=== PATIENT | male | born 1940 | race Caucasian/White ===

== ENCOUNTER 2016-12-04 12:49 | Inpatient (IN) | payer OTHER ==
[~2016-12-04] VITALS: Ht 182.9 cm; Wt 97.7 kg
[~2016-12-04 12:49] MED LIST: METOPROLOL; PLAVIX; PRILOSEC
[2016-12-04 13:16] LABS: Basophils # (auto) 0 uL; Basophils % (auto) 0.3 % (0.0-2.0); Eosinophils # (auto) 0.4 uL; Eosinophils % (auto) 3.6 % (0.0-7.0); Hemoglobin 15.9 g/dL (13.5-17.5); Lymphocytes # (auto) 3.1 uL; Lymphocytes % (auto) 31.6 % (10.0-50.0); Mean Corpuscular Hgb Conc. 32.4 g/dL (32.0-36.0); Mean Corpuscular Volume 86.5 fL (80.0-100.0); Mean Platelet Volume 9.3 fL (7.4-10.4); Monocytes # (auto) 0.9 uL; Monocytes % (auto) 9.4 % (0.0-12.0); Neutrophils # (auto) 5.5 uL; Neutrophils % (auto) 55.1 % (37.0-80.0); Platelet Count (auto) 293 10^3/uL (140-450); Red Cell Distribution Width 14.1 % (11.6-16.0); White Blood Cell 9.9 10^3/uL (4.4-10.8)
[2016-12-04 13:41] LABS: Albumin 4.2 g/dL (3.4-5.0); Alkaline Phosphatase 65 U/L (45-117); Anion Gap 8 (5-15); Aspartate Aminotransferase 19 U/L (15-37); Bilirubin, Total 0.9 mg/dL (0.2-1.0); Blood Urea Nitrogen 18 mg/dL (7-18); Calcium 8.9 mg/dL (8.5-10.1); Carbon Dioxide 31 mmol/L (21-32); Chloride 106 mmol/L (98-107); GFR African American 130 mL/min; GFR Non-African American 108 mL/min; Glucose 103 mg/dL (74-106); Magnesium 2.3 mg/dL (1.6-2.6); Potassium 4.1 mmol/L (3.5-5.1); Sodium 145 mmol/L (136-145); Total Protein 8.2 g/dL (6.4-8.2)
[2016-12-04 14:41] LABS: INR 1.17 (0.9-1.15); Prothrombin Time 12.6 sec (9.37-12.3)
[2016-12-04] MEDS ORDERED: ENOXAPARIN SOD 40 MG/0.4 ML SYRINGE SC ONE (15:45)
[2016-12-04] MEDS ORDERED: MORPHINE SULF INJ 2 MG/ML SYRINGE 1ML IV PRN (15:45)
[2016-12-04] MEDS ORDERED: PANTOPRAZOLE 40 MG TAB PO ONE (16:00)
[2016-12-04] MEDS ORDERED: ASPirin 81 mg TAB PO ONE (16:00)
[2016-12-04] MEDS: NITROGLYCERIN 0.4 MG SL TAB SL PRN ×2 (19:05→20:25)
[2016-12-04] MEDS: ATORVASTATIN 20 MG TAB PO SCH (20:10)
[2016-12-04 20:45] VITALS: BP_SYST 119; BP_SYST 127; BP_DIAS 75; BP_DIAS 76
[2016-12-04] MEDS: METOPROLOL TARTRATE 25 MG TAB PO SCH (21:53)
[2016-12-05] VITALS (7 sets, daily range): BP systolic 123–130; BP diastolic 47–79
[2016-12-05] MEDS ORDERED: RIVA20TA PO (03:20)
[2016-12-05] MEDS ORDERED: OMEP20CA5 PO (03:20)
[2016-12-05] MEDS ORDERED: ISOS20TA56 PO (03:20)
[2016-12-05] MEDS ORDERED: GABA300C8 PO (03:20)
[2016-12-05] MEDS ORDERED: METO25TA5 PO (03:20)
[2016-12-05] MEDS ORDERED: NITR0.4S29 SL (03:20)
[2016-12-05] MEDS ORDERED: IBUP800T24 PO (03:20)
[2016-12-05] MEDS ORDERED: SIMV-8 PO (03:20)
[2016-12-05 06:13] LABS: Cholesterol 128 mg/dL (0-200); HDL Cholesterol 35 mg/dL (40-59); LDL Cholesterol 75 mg/dL (<100); Triglycerides 137 mg/dL (<150)
[2016-12-05] MEDS ORDERED: LIDOCAINE 2%HCL (LOCAL ANESTH.) INJ 20ML MDV ONE (09:03)
[2016-12-05] MEDS ORDERED: IODIXANOL 320MG/ML 100ML BTL IV ONE (09:03)
[2016-12-05] MEDS: PANTOPRAZOLE 40 MG TAB PO SCH (09:22)
[2016-12-05] MEDS: ATORVASTATIN 20 MG TAB PO SCH (09:23)
[2016-12-05] MEDS: METOPROLOL TARTRATE 25 MG TAB PO SCH ×2 (09:23→21:32)
[2016-12-05] MEDS ORDERED: CLOPIDOGREL BISULFATE 75 MG TAB PO SCH (10:00)
[2016-12-05] MEDS ORDERED: ASPirin 81 mg TAB PO SCH (10:00)
[2016-12-05] MEDS ORDERED: CLOPIDOGREL 300 MG TAB PO ONE (10:00)
[2016-12-05] MEDS ORDERED: MIDAZOLAM HCL 1MG/1ML-2 ML VIAL ONE (11:57)
[2016-12-05] MEDS ORDERED: fentaNYL CITRATE 100 MCG/2 ML VL ONE (11:57)
[2016-12-05] MEDS ORDERED: ANGIOMAX 250 MG VIAL IV ONE (12:04)
[2016-12-05] MEDS ORDERED: SODIUM CHL 0.9% 50 ML ONE (12:05)
[2016-12-05] MEDS ORDERED: ASPirin 81 mg TAB ONE (12:14)
[2016-12-05] MEDS ORDERED: PRASUGREL HCL 10 MG TAB ONE (12:16)
[2016-12-05] MEDS: SODIUM CHLOR 0.9% PF (SALINE LOCK) 10ML VIAL IV SCH (21:31)
[2016-12-06 04:36] VITALS: BP 102/65
[2016-12-06 05:19] LABS: Basophils # (auto) 0 uL; Basophils % (auto) 0.2 % (0.0-2.0); Eosinophils # (auto) 0.2 uL; Eosinophils % (auto) 1.5 % (0.0-7.0); Lymphocytes # (auto) 2.2 uL; Lymphocytes % (auto) 17.1 % (10.0-50.0); Mean Corpuscular Hemoglobin 28.3 pg (28.0-32.0); Mean Corpuscular Hgb Conc. 32.5 g/dL (32.0-36.0); Mean Corpuscular Volume 86.8 fL (80.0-100.0); Mean Platelet Volume 9.4 fL (7.4-10.4); Monocytes # (auto) 1.2 uL; Monocytes % (auto) 9.7 % (0.0-12.0); Neutrophils % (auto) 71.5 % (37.0-80.0); Platelet Count (auto) 253 10^3/uL (140-450); Red Cell Distribution Width 13.8 % (11.6-16.0); White Blood Cell 12.6 10^3/uL (4.4-10.8)
[2016-12-06 05:52] LABS: Albumin 3.6 g/dL (3.4-5.0); BUN/Creatinine Ratio 17.1; Bilirubin, Total 1.1 mg/dL (0.2-1.0); Calcium 8.9 mg/dL (8.5-10.1); Potassium 4.1 mmol/L (3.5-5.1); Total Protein 7.2 g/dL (6.4-8.2)
[2016-12-06] MEDS: SODIUM CHLOR 0.9% PF (SALINE LOCK) 10ML VIAL IV SCH (06:00)
[2016-12-06 07:34] VITALS: BP 137/65
[2016-12-06] MEDS ORDERED: CLOPIDOGREL 300 MG TAB PO ONE ×3 (08:00→17:30)
[2016-12-06] MEDS: ATORVASTATIN 20 MG TAB PO SCH (09:20)
[2016-12-06] MEDS: PANTOPRAZOLE 40 MG TAB PO SCH (09:20)
[2016-12-06] MEDS: METOPROLOL TARTRATE 25 MG TAB PO SCH (09:21)
[2016-12-06] MEDS ORDERED: ASPirin 81 mg TAB PO SCH (10:00)
[2016-12-06] MEDS ORDERED: PRASUGREL HCL 10 MG TAB PO SCH (10:00)
[2016-12-06 11:37] VITALS: BP 107/60
[2016-12-07] MEDS ORDERED: CLOPIDOGREL BISULFATE 75 MG TAB PO SCH (10:00)
== END 2016-12-06 13:38 | disposition left against medical advice (07) | DRG 247 ==
LOC: ER 12:51 → TELE 12:52 → TELE-CENTR 20:45
PROVIDERS: ADMIT Internal Medicine; ATTEND Internal Medicine
PROC: 027135Z Dilation of Coronary Artery, Two Arteries with Two Drug-eluting Intraluminal Devices, Percutaneous Approach (ICD-10-PCS; principal; 2016-12-05)
PROC: 4A023N7 Measurement of Cardiac Sampling and Pressure, Left Heart, Percutaneous Approach (ICD-10-PCS; 2016-12-05)
PROC: B2111ZZ Fluoroscopy of Multiple Coronary Arteries using Low Osmolar Contrast (ICD-10-PCS; 2016-12-05)
DX: I21.4 Non-ST elevation (NSTEMI) myocardial infarction (principal); J96.10 Chronic respiratory failure, unspecified whether with hypoxia or hypercapnia; E78.5 Hyperlipidemia, unspecified; K21.9 Gastro-esophageal reflux disease without esophagitis; I25.110 Atherosclerotic heart disease of native coronary artery with unstable angina pectoris; E11.9 Type 2 diabetes mellitus without complications; I11.9 Hypertensive heart disease without heart failure; J44.9 Chronic obstructive pulmonary disease, unspecified; Z87.891 Personal history of nicotine dependence; Z86.73 Personal history of transient ischemic attack (TIA), and cerebral infarction without residual deficits
CPT/HCPCS: 36415; 71020; 80053; 80061; 83036; 83735; 84443; 84484; 85025; 85610; 93005; 96372; 99152; 99291; C1874; J2250; Q9967

== ENCOUNTER → 2018-11-10 | Outpatient (CLI) | payer OTHER ==
[~2018-11-10] MED LIST changes: +ASPI-231 PO; +CLOP75TA28 PO; +DOCU-94 PO; +GABA300C10 PO; +ISOS20TA56 PO; +METO25TA5 PO; -METOPROLOL; +OMEP20CA74 PO; -PLAVIX; -PRILOSEC; +SIMV-8 PO
[2018-11-10 12:33] LABS: Basophils # (auto) 0.1 uL; Basophils % (auto) 0.7 % (0.0-2.0); Eosinophils # (auto) 0.3 uL; Eosinophils % (auto) 3.9 % (0.0-7.0); Hematocrit 47.2 % (41.0-53.0); Hemoglobin 15.3 g/dL (13.5-17.5); Lymphocytes # (auto) 2.3 uL; Lymphocytes % (auto) 27.5 % (10.0-50.0); Mean Corpuscular Hemoglobin 28.2 pg (28.0-32.0); Mean Corpuscular Hgb Conc. 32.5 g/dL (32.0-36.0); Mean Corpuscular Volume 86.7 fL (80.0-100.0); Monocytes % (auto) 12.4 % (0.0-12.0); Neutrophils # (auto) 4.7 uL; Neutrophils % (auto) 55.5 % (37.0-80.0); Nucleated Red Blood Cells % 0.1 %; Platelet Count (auto) 223 10^3/uL (140-450); Red Blood Cells 5.44 10^6/uL (4.5-5.90); Red Cell Distribution Width 14.3 % (11.8-14.3); White Blood Cell 8.4 10^3/uL (4.4-10.8)
[2018-11-10 12:46] LABS: Albumin 3.6 g/dL (3.4-5.0); BUN/Creatinine Ratio 23.4; Calcium 8.8 mg/dL (8.5-10.1)
[2018-11-10 12:51] LABS: Bilirubin, Total 0.6 mg/dL (0.2-1.0); Total Protein 7.7 g/dL (6.4-8.2)
== END | disposition home or self-care (01) ==
LOC: LAB 11:37
PROVIDERS: ATTEND Internal Medicine
DX: Z12.11 Encounter for screening for malignant neoplasm of colon (principal); E11.9 Type 2 diabetes mellitus without complications; E78.5 Hyperlipidemia, unspecified; J44.9 Chronic obstructive pulmonary disease, unspecified; K21.9 Gastro-esophageal reflux disease without esophagitis; I10 Essential (primary) hypertension
CPT/HCPCS: 36415; 80053; 80061; 82043; 82306; 83036; 84443; 85025

== ENCOUNTER → 2019-02-07 | Outpatient (CLI) | payer OTHER ==
[2019-02-07 08:06] LABS: Basophils # (auto) 0.1 uL; Eosinophils # (auto) 0.4 uL; Eosinophils % (auto) 4.8 % (0.0-7.0); Hematocrit 47.5 % (41.0-53.0); Hemoglobin 15.6 g/dL (13.5-17.5); Lymphocytes # (auto) 2.7 uL; Lymphocytes % (auto) 29.1 % (10.0-50.0); Mean Corpuscular Hemoglobin 28.3 pg (28.0-32.0); Mean Corpuscular Hgb Conc. 32.9 g/dL (32.0-36.0); Mean Corpuscular Volume 86.1 fL (80.0-100.0); Monocytes # (auto) 0.8 uL; Monocytes % (auto) 9.1 % (0.0-12.0); Neutrophils # (auto) 5.1 uL; Platelet Count (auto) 234 10^3/uL (140-450); Red Blood Cells 5.52 10^6/uL (4.5-5.90); White Blood Cell 9.2 10^3/uL (4.4-10.8)
[2019-02-07 08:22] LABS: Urine Bacteria NONE SEEN /hpf (None Seen); Urine Blood 1+ /uL (Negative); Urine Mucus FEW (None Seen); Urine Specific Gravity 1.012 (1.001-1.035); Urine WBC 295 /hpf (0 - 3); Urine WBC Clumps PRESENT /hpf (None Seen)
[2019-02-07 09:59] LABS: Albumin 3.8 g/dL (3.4-5.0); Potassium 4.1 mmol/L (3.5-5.1)
[2019-02-07 10:01] LABS: Bilirubin, Total 0.6 mg/dL (0.2-1.0); CRP High Sensitivity 0.03 mg/dL (< 0.3); Total Protein 7.6 g/dL (6.4-8.2)
[2019-02-07 10:04] LABS: Free T4 (Free Thyroxine) 0.89 ng/dL (0.89-1.76)
[2019-02-07 10:05] LABS: Free T3 3.13 pg/mL (2.3-4.2); T3 Total 1.04 ng/mL (0.60-1.81)
== END | disposition home or self-care (01) ==
LOC: LAB 07:35
PROVIDERS: ATTEND Internal Medicine
DX: E11.42 Type 2 diabetes mellitus with diabetic polyneuropathy (principal); I73.9 Peripheral vascular disease, unspecified; I27.20 Pulmonary hypertension, unspecified; I25.10 Atherosclerotic heart disease of native coronary artery without angina pectoris
CPT/HCPCS: 36415; 80053; 80061; 81001; 82306; 82607; 83036; 84439; 84443; 84480; 84481; 85025; 86141

== ENCOUNTER → 2019-02-08 | Outpatient (CLI) | payer OTHER | END | disposition home or self-care (01) | LOC: XY 09:46 | PROVIDERS: ATTEND Podiatrist | DX: I73.9 Peripheral vascular disease, unspecified (principal); E11.9 Type 2 diabetes mellitus without complications; I10 Essential (primary) hypertension; M79.609 Pain in unspecified limb | CPT/HCPCS: 93926 ==

== ENCOUNTER → 2019-02-25 | Outpatient (CLI) | payer OTHER | END | disposition home or self-care (01) | LOC: LAB 08:13 | PROVIDERS: ATTEND Internal Medicine | DX: E11.9 Type 2 diabetes mellitus without complications (principal) | CPT/HCPCS: 36415; 83036 ==

== ENCOUNTER → 2019-03-16 | Outpatient (CLI) | payer OTHER ==
[2019-03-16 11:53] LABS: BUN/Creatinine Ratio 20.5; Calcium 8.9 mg/dL (8.5-10.1); Potassium 4.3 mmol/L (3.5-5.1)
== END | disposition home or self-care (01) ==
LOC: LAB 08:56
PROVIDERS: ATTEND Internal Medicine
DX: Z01.812 Encounter for preprocedural laboratory examination (principal)
CPT/HCPCS: 36415; 80048

== ENCOUNTER → 2019-03-17 | Outpatient (CLI) | payer OTHER ==
[~2019-03-17] MED LIST changes: +IOHEXOL 350 MG/ML 100ML IJ ONE
== END | disposition home or self-care (01) ==
LOC: CT 08:42
PROVIDERS: ATTEND Internal Medicine
DX: K40.90 Unilateral inguinal hernia, without obstruction or gangrene, not specified as recurrent (principal); I71.4 Abdominal aortic aneurysm, without rupture; K42.9 Umbilical hernia without obstruction or gangrene; I70.203 Unspecified atherosclerosis of native arteries of extremities, bilateral legs; I70.8 Atherosclerosis of other arteries; N40.0 Benign prostatic hyperplasia without lower urinary tract symptoms; K62.89 Other specified diseases of anus and rectum; I25.10 Atherosclerotic heart disease of native coronary artery without angina pectoris; I25.2 Old myocardial infarction; E78.5 Hyperlipidemia, unspecified; Z86.79 Personal history of other diseases of the circulatory system; Z87.891 Personal history of nicotine dependence; Z98.890 Other specified postprocedural states
CPT/HCPCS: 75635; Q9967

== ENCOUNTER → 2019-03-24 | Outpatient (CLI) | payer OTHER ==
[~2019-03-24] MED LIST changes: -IOHEXOL 350 MG/ML 100ML IJ ONE
== END | disposition home or self-care (01) ==
LOC: XYW 08:05
PROVIDERS: ATTEND Internal Medicine
DX: I25.10 Atherosclerotic heart disease of native coronary artery without angina pectoris (principal)
CPT/HCPCS: 93306

== ENCOUNTER 2019-04-01 12:47 | Emergency (ER) | payer OTHER ==
[~2019-04-01] VITALS: Ht 182.9 cm; Wt 87.5 kg
[2019-04-01 14:16] LABS: Basophils # (auto) 0.1 uL; Basophils % (auto) 0.7 % (0.0-2.0); Eosinophils # (auto) 0.4 uL; Eosinophils % (auto) 4.5 % (0.0-7.0); Hematocrit 46.4 % (41.0-53.0); Hemoglobin 15.2 g/dL (13.5-17.5); Lymphocytes # (auto) 2.3 uL; Lymphocytes % (auto) 24.1 % (10.0-50.0); Mean Corpuscular Hemoglobin 29.1 pg (28.0-32.0); Mean Corpuscular Hgb Conc. 32.7 g/dL (32.0-36.0); Mean Corpuscular Volume 88.8 fL (80.0-100.0); Monocytes % (auto) 10.1 % (0.0-12.0); Neutrophils # (auto) 5.9 uL; Neutrophils % (auto) 60.6 % (37.0-80.0); Nucleated Red Blood Cells % 0.1 %; Platelet Count (auto) 229 10^3/uL (140-450); Red Blood Cells 5.22 10^6/uL (4.5-5.90); Red Cell Distribution Width 14.8 % (11.8-14.3); White Blood Cell 9.8 10^3/uL (4.4-10.8)
[2019-04-01 14:17] LABS: Albumin 3.5 g/dL (3.4-5.0); BUN/Creatinine Ratio 16.1; Calcium 8.7 mg/dL (8.5-10.1); Potassium 4.8 mmol/L (3.5-5.1)
[2019-04-01 14:20] LABS: Bilirubin, Total 0.6 mg/dL (0.2-1.0); Total Protein 7.6 g/dL (6.4-8.2)
[2019-04-01] MEDS ORDERED: GASTROGRAFIN 30 ML SOL ONE (14:57)
[2019-04-01 15:56] VITALS: BP 97/64
== END 2019-04-01 17:58 | disposition home or self-care (01) ==
LOC: ER 12:47
DX: K40.90 Unilateral inguinal hernia, without obstruction or gangrene, not specified as recurrent (principal); J44.9 Chronic obstructive pulmonary disease, unspecified; E11.9 Type 2 diabetes mellitus without complications; E78.5 Hyperlipidemia, unspecified; I10 Essential (primary) hypertension; I25.2 Old myocardial infarction; Z86.73 Personal history of transient ischemic attack (TIA), and cerebral infarction without residual deficits; Z98.61 Coronary angioplasty status
CPT/HCPCS: 36415; 74176; 80053; 85025; 99284; Q9963

== ENCOUNTER → 2019-04-28 | Outpatient (CLI) | payer OTHER ==
[~2019-04-28] VITALS: Ht 182.9 cm; Wt 88.5 kg
[~2019-04-28] MED LIST changes: +ADENOSINE 74 MG in GIVE UN-DILUTED 0 ML IV STA; +ALBUTEROL SULF 2.5 MG/0.5ML(0.5%) NEB SOLN NEB ONE; +IPRATROPIUM BROM 0.5 MG/2.5ML INH SOL NEB ONE
== END | disposition home or self-care (01) ==
LOC: XY 07:44
PROVIDERS: ATTEND Internal Medicine
DX: J44.9 Chronic obstructive pulmonary disease, unspecified (principal); I10 Essential (primary) hypertension; E11.9 Type 2 diabetes mellitus without complications; Z98.890 Other specified postprocedural states
CPT/HCPCS: 78452; 93017; 94640; A9500; J0153; J7611; J7644

== ENCOUNTER → 2019-06-27 | Outpatient (CLI) | payer OTHER ==
[~2019-06-27] MED LIST changes: -ADENOSINE 74 MG in GIVE UN-DILUTED 0 ML IV STA; -ALBUTEROL SULF 2.5 MG/0.5ML(0.5%) NEB SOLN NEB ONE; +ATOR1TAB PO; -IPRATROPIUM BROM 0.5 MG/2.5ML INH SOL NEB ONE; +LISI2.5T47 PO; +METF-370 PO; +NITR0.4S29 SL
[2019-06-27 12:30] LABS: Basophils # (auto) 0.1 uL; Basophils % (auto) 0.5 % (0.0-2.0); Eosinophils # (auto) 0.2 uL; Eosinophils % (auto) 2.3 % (0.0-7.0); Hematocrit 46.8 % (41.0-53.0); Hemoglobin 15.3 g/dL (13.5-17.5); Lymphocytes # (auto) 1.9 uL; Mean Corpuscular Hemoglobin 28.7 pg (28.0-32.0); Mean Corpuscular Hgb Conc. 32.7 g/dL (32.0-36.0); Mean Corpuscular Volume 87.8 fL (80.0-100.0); Monocytes # (auto) 0.9 uL; Monocytes % (auto) 9.4 % (0.0-12.0); Neutrophils # (auto) 6.3 uL; Neutrophils % (auto) 67.8 % (37.0-80.0); Nucleated Red Blood Cells % 0.1 %; Platelet Count (auto) 196 10^3/uL (140-450); Red Blood Cells 5.33 10^6/uL (4.5-5.90); Red Cell Distribution Width 14.8 % (11.8-14.3); White Blood Cell 9.3 10^3/uL (4.4-10.8)
[2019-06-27 12:41] LABS: INR 1.1 (0.9-1.15); Partial Thromboplastin Time 25.6 sec (23.64-32.05)
[2019-06-27 13:23] LABS: Albumin 3.7 g/dL (3.4-5.0); BUN/Creatinine Ratio 24.7; Bilirubin, Total 0.7 mg/dL (0.2-1.0); Calcium 8.9 mg/dL (8.5-10.1); Magnesium 2.2 mg/dL (1.6-2.6); Potassium 4.3 mmol/L (3.5-5.1); Total Protein 7.3 g/dL (6.4-8.2)
== END | disposition home or self-care (01) ==
LOC: LAB 11:48
PROVIDERS: ATTEND Internal Medicine
DX: Z01.812 Encounter for preprocedural laboratory examination (principal); E11.9 Type 2 diabetes mellitus without complications; J44.9 Chronic obstructive pulmonary disease, unspecified; I25.10 Atherosclerotic heart disease of native coronary artery without angina pectoris
CPT/HCPCS: 36415; 80053; 82550; 83735; 85025; 85610; 85730

== ENCOUNTER 2019-06-29 08:26 | Inpatient (IN) | payer OTHER ==
[~2019-06-29] VITALS: Ht 182.9 cm; Wt 94.6 kg
[2019-06-29] MEDS ORDERED: IOHEXOL 350 MG/ML 100ML IJ ONE ×5 (08:39→11:26)
[2019-06-29] MEDS ORDERED: LIDOCAINE 2%HCL (LOCAL ANESTH.) INJ 20ML MDV ONE (08:39)
[2019-06-29] MEDS ORDERED: fentaNYL CITRATE 100 MCG/2 ML VL ONE (09:07)
[2019-06-29] MEDS ORDERED: ANGIOMAX 250 MG VIAL IV ONE ×2 (09:07→10:45)
[2019-06-29] MEDS ORDERED: SODIUM CHL 0.9% 50 ML ONE ×3 (09:08→10:45)
[2019-06-29] MEDS ORDERED: MIDAZOLAM HCL 1MG/1ML-2 ML VIAL ONE (09:08)
[2019-06-29] MEDS ORDERED: VERAPAMIL 2.5MG/ML INJ 2ML VIAL IV ONE (09:10)
[2019-06-29] MEDS ORDERED: NITROGLYCERIN 5MG/ML 10ML VIAL IV ONE (09:11)
[2019-06-29] MEDS ORDERED: HEPARIN SODIUM (PORCINE) 5000 UNITS/ML 1ML VIAL ONE (09:41)
[2019-06-29] MEDS ORDERED: DEXTROSE (50%) 50ML SYRG IV PRN (12:30)
[2019-06-29] MEDS ORDERED: NITROGLYCERIN 0.4 MG SL TAB SL PRN (12:30)
[2019-06-29] MEDS ORDERED: SODIUM CHLORIDE 0.9% 1,000 ML IV ONE (12:30)
[2019-06-29] MEDS ORDERED: HYDROcodone-ACET 5/325MG TAB PO PRN (12:30)
[2019-06-29] MEDS ORDERED: ACETAMINOPHEN 500 MG TAB PO PRN (12:30)
[2019-06-29] MEDS ORDERED: ONDANSETRON HCL 4 MG/2 ML VIAL IV PRN (12:30)
[2019-06-29] MEDS ORDERED: MORPHINE SULF INJ 2 MG/ML SYRINGE 1ML IV PRN (12:30)
[2019-06-29] MEDS ORDERED: LISINOPRIL 5 MG TAB PO ONE (12:45)
[2019-06-29] MEDS ORDERED: GABAPENTIN 300 MG CAP PO ONE (12:45)
[2019-06-29] MEDS ORDERED: OMEPRAZOLE 20MG/10ML ORAL SUSP PO ONE (12:45)
[2019-06-29] MEDS ORDERED: CLOPIDOGREL BISULFATE 75 MG TAB PO ONE (12:45)
[2019-06-29] MEDS ORDERED: ASPirin-EC 81 mg tab PO ONE (12:45)
--- NOTE | 2019-06-29 12:49 | NUR ---
REPORT RECEIVED-WAITING FOR PATIENT ARRIVAL
[2019-06-29 13:00] VITALS: BP 152/72
--- NOTE | 2019-06-29 13:45 | NUR ---
[facility] VIVEKBangALICE admitted to Telemetry unit after SBAR received. Patient oriented to Shantell Hernandez, primary RN, unit, room, bed, and unit policies regarding patient care and visiting hours. Patient now on continuous telemetry monitoring, tele box #[id number] and telemetry reading on arrival to unit is SR WITH PVCs RATE 75BPM. Patient weighed by bedscale and encouraged to call if they need something. All questions and concerns addressed, patient verbalized understanding. VASCBAND TO RIGHT WRIST-TO CONTINUE WITHDRAWLING AIR FROM DEVICE PER PROTOCOL. SITE WITH MINIMAL BRUISING TO RIGHT WRIST JUST LATERAL TO VASCBAND SITE--CAMERA OPERATOR RN AT BEDSIDE SIRCLING BRUISE- SITE IS SOFT TO TOUNH AND NON PROTRUDING. WILL CONTINUE TO MONITOR. Note:
[2019-06-29 16:50] VITALS: BP 105/58
[2019-06-29] MEDS: InsuLIN REG 1unit/0.01ml Soln (100units/ml) SC SCH ×2 (17:00→21:19)
[2019-06-29] MEDS: ACCU-CHEK COMFORT CURVE STRIP VI SCH ×2 (17:04→21:19)
[2019-06-29] MEDS: GABAPENTIN 300 MG CAP PO SCH (17:17)
--- NOTE | 2019-06-29 20:00 | NUR ---
Opening Shift Note Assumed care of patient, awake and alert. No S/S of distress/SOB or pain. Instructed on POC and to call for assist PRN, will continue to monitor for changes Q1hr and PRN. patient heart cath site to right radial dresing c/d/i no further bleeding noted just brsuiing will continue to monitor patient.
[2019-06-29] MEDS: PANTOPRAZOLE 40 MG TAB PO SCH (21:19)
[2019-06-29 21:33] VITALS: BP 111/65
[2019-06-29] MEDS ORDERED: ATORVASTATIN 20 MG TAB PO SCH (22:00)
[2019-06-30 05:42] VITALS: BP 110/67
[2019-06-30] MEDS: InsuLIN REG 1unit/0.01ml Soln (100units/ml) SC SCH ×3 (06:11→16:55)
[2019-06-30] MEDS: ACCU-CHEK COMFORT CURVE STRIP VI SCH ×3 (06:13→16:55)
--- NOTE | 2019-06-30 06:59 | NUR ---
PATIENT SLEPT WELL ALL NIGHT NO COMPLAINTS OF PAIN OR ANY DISCOMFORT. PATIENT HEART CATH DRESSING C/D/I NO HEMATOMA JUST BRUISING. PLAN FOR PATIENT IS TO ANTICIPATE DISCHARGE HOME PATIENT VERBALIZES UNDERSTANDING.
[2019-06-30] MEDS ORDERED: GABAPENTIN 300 MG CAP PO SCH (07:00)
--- NOTE | 2019-06-30 07:28 | NUR ---
Opening note Care of patient assumed from leather staker nurse. Patient alert and oriented x4. No signs of distress noted. Patient informed on plan of care and verbalizes understanding. Bed in lowest position, side rails up x2 and call light in reach. Will continue to monitor.
[2019-06-30 09:00] VITALS: BP 100/54
[2019-06-30] MEDS: PANTOPRAZOLE 40 MG TAB PO SCH (09:33)
[2019-06-30] MEDS ORDERED: CLOPIDOGREL BISULFATE 75 MG TAB PO SCH (10:00)
[2019-06-30] MEDS ORDERED: LISINOPRIL 5 MG TAB PO SCH (10:00)
[2019-06-30] MEDS ORDERED: ASPirin-EC 81 mg tab PO SCH (10:00)
--- NOTE | 2019-06-30 11:50 | NUR ---
Spoke with Dr. Solorzano Regarding updated labs, all within normal limits. Patient no longer c/o of abdominal pain or nausea. Per Jeanine patient is okay to be discharged home with Dr. Jordan approval. Addendum: 06/30/19 at 1637 by Hailey Parker RN Correct time is 1630.
[2019-06-30] MEDS ORDERED: MORPHINE SULFATE 4 MG/ML SYR/VIAL IV PRN (12:00)
[2019-06-30] MEDS ORDERED: ONDANSETRON HCL 4 MG/2 ML VIAL IV PRN (12:00)
[2019-06-30 12:23] LABS: Basophils # (auto) 0.1 uL; Basophils % (auto) 0.8 % (0.0-2.0); Eosinophils # (auto) 0.3 uL; Hematocrit 44.2 % (41.0-53.0); Hemoglobin 14.3 g/dL (13.5-17.5); Lymphocytes # (auto) 1.8 uL; Lymphocytes % (auto) 18.3 % (10.0-50.0); Mean Corpuscular Hemoglobin 28.6 pg (28.0-32.0); Mean Corpuscular Hgb Conc. 32.3 g/dL (32.0-36.0); Mean Corpuscular Volume 88.6 fL (80.0-100.0); Neutrophils # (auto) 6.8 uL; Neutrophils % (auto) 67.9 % (37.0-80.0); Nucleated Red Blood Cells % 0.1 %; Platelet Count (auto) 177 10^3/uL (140-450); Red Blood Cells 4.99 10^6/uL (4.5-5.90); Red Cell Distribution Width 14.7 % (11.8-14.3)
[2019-06-30 12:44] LABS: Potassium 4.5 mmol/L (3.5-5.1)
[2019-06-30 12:59] LABS: Albumin 3.1 g/dL (3.4-5.0); BUN/Creatinine Ratio 17.1; Bilirubin, Total 0.7 mg/dL (0.2-1.0); Calcium 8.6 mg/dL (8.5-10.1); Total Protein 6.5 g/dL (6.4-8.2)
[2019-06-30 13:00] VITALS: BP 139/52
--- NOTE | 2019-06-30 16:43 | NUR ---
Spoke with Dr. Jonas Patient is cleared for discharge, follow up in his office in 2 weeks.
[2019-06-30] MEDS: GABAPENTIN 300 MG CAP PO SCH (16:55)
[2019-06-30 17:00] VITALS: BP 116/70
[2019-06-30 17:41] VITALS: BP 116/70
--- NOTE | 2019-06-30 18:50 | NUR ---
Discharge instructions given as ordered. Encourage to follow up with PMD and Refractory Repairer as instructed. All questions and concerns addressed. Patient verbalized understanding. Medication reconciliation form completed and copy given to patient. IV removed with catheter intact, pressure dressing applied. Telemetry unit returned to ICU. Patient taken to vehicle via wheelchair with all personal belongings on 2L of home O2, accompanied by staff and family member. No distress noted at time of departure.
== END 2019-06-30 18:50 | disposition home or self-care (01) | DRG 246 ==
LOC: CATH 08:26 → TELE-WESTW 13:48
PROVIDERS: ADMIT Internal Medicine; ATTEND Internal Medicine
PROC: 027135Z Dilation of Coronary Artery, Two Arteries with Two Drug-eluting Intraluminal Devices, Percutaneous Approach (ICD-10-PCS; principal; 2019-06-29)
PROC: 02703ZZ Dilation of Coronary Artery, One Artery, Percutaneous Approach (ICD-10-PCS; 2019-06-29)
PROC: 4A023N7 Measurement of Cardiac Sampling and Pressure, Left Heart, Percutaneous Approach (ICD-10-PCS; 2019-06-29)
PROC: B2111ZZ Fluoroscopy of Multiple Coronary Arteries using Low Osmolar Contrast (ICD-10-PCS; 2019-06-29)
PROC: B2151ZZ Fluoroscopy of Left Heart using Low Osmolar Contrast (ICD-10-PCS; 2019-06-29)
PROC: B240ZZ3 Ultrasonography of Single Coronary Artery, Intravascular (ICD-10-PCS; 2019-06-29)
DX: T82.855A Stenosis of coronary artery stent, initial encounter (principal); I50.33 Acute on chronic diastolic (congestive) heart failure; I42.9 Cardiomyopathy, unspecified; I25.10 Atherosclerotic heart disease of native coronary artery without angina pectoris; E11.9 Type 2 diabetes mellitus without complications; I10 Essential (primary) hypertension; E78.5 Hyperlipidemia, unspecified; M54.9 Dorsalgia, unspecified; G89.29 Other chronic pain; Y83.8 Other surgical procedures as the cause of abnormal reaction of the patient, or of later complication, without mention of misadventure at the time of the procedure; Z86.79 Personal history of other diseases of the circulatory system; Y92.89 Other specified places as the place of occurrence of the external cause; Z79.899 Other long term (current) drug therapy
CPT/HCPCS: 36415; 80053; 82565; 82962; 83690; 85025; 92920; 92928; 92978; 93458; 99152; 99153; C1874; G0378; J2250; J2405; J3490

== ENCOUNTER → 2019-07-29 | Outpatient (CLI) | payer OTHER ==
[~2019-07-29] MED LIST changes: -DOCU-94 PO; -ISOS20TA56 PO; -METO25TA5 PO; -SIMV-8 PO
== END | disposition home or self-care (01) ==
LOC: LAB 13:43
PROVIDERS: ATTEND Internal Medicine
DX: E11.9 Type 2 diabetes mellitus without complications (principal)
CPT/HCPCS: 36415; 83036

== ENCOUNTER → 2019-09-27 | Outpatient (CLI) | payer OTHER ==
[2019-09-27 09:08] LABS: Cholesterol 106 mg/dL (< 200); HDL Cholesterol 46 mg/dL (40-59); LDL Cholesterol 49 mg/dL (< 100); Triglycerides 100 mg/dL (< 150)
== END | disposition home or self-care (01) ==
LOC: LAB 07:45
PROVIDERS: ATTEND Internal Medicine
DX: E11.9 Type 2 diabetes mellitus without complications (principal); J44.9 Chronic obstructive pulmonary disease, unspecified; I25.10 Atherosclerotic heart disease of native coronary artery without angina pectoris
CPT/HCPCS: 36415; 80061

== ENCOUNTER → 2019-10-12 | Outpatient (CLI) | payer OTHER | END | disposition home or self-care (01) | LOC: XYW 07:33 | PROVIDERS: ATTEND Internal Medicine | DX: Z09 Encounter for follow-up examination after completed treatment for conditions other than malignant neoplasm (principal); I48.91 Unspecified atrial fibrillation; Z95.5 Presence of coronary angioplasty implant and graft | CPT/HCPCS: 93306 ==

== ENCOUNTER → 2020-02-16 | Outpatient (CLI) | payer OTHER ==
[~2020-02-16] MED LIST changes: +CHOL20007 PO; +FAMO-12 PO; +FINA5TAB4 PO; +TAMS1CAP25 PO
== END | disposition home or self-care (01) ==
LOC: LAB 11:52
PROVIDERS: ATTEND Internal Medicine
DX: E11.9 Type 2 diabetes mellitus without complications (principal); I25.10 Atherosclerotic heart disease of native coronary artery without angina pectoris; E78.5 Hyperlipidemia, unspecified
CPT/HCPCS: 36415; 83036; 84443

== ENCOUNTER → 2020-02-23 | Outpatient (CLI) | payer OTHER ==
[~2020-02-23] VITALS: Ht 182.9 cm; Wt 93.0 kg
[~2020-02-23] MED LIST changes: +ADENOSINE 78 MG in GIVE UN-DILUTED 0 ML IV ONE; -CHOL20007 PO; -FAMO-12 PO; -FINA5TAB4 PO; -TAMS1CAP25 PO
== END | disposition home or self-care (01) ==
LOC: XY 07:41
PROVIDERS: ATTEND Internal Medicine
DX: I25.10 Atherosclerotic heart disease of native coronary artery without angina pectoris (principal); I10 Essential (primary) hypertension
CPT/HCPCS: 78452; 93017; A9500; J0153

== ENCOUNTER → 2020-03-16 | Outpatient (CLI) | payer OTHER ==
[~2020-03-16] MED LIST changes: -ADENOSINE 78 MG in GIVE UN-DILUTED 0 ML IV ONE
[2020-03-16 10:39] LABS: Cholesterol 123 mg/dL (< 200); HDL Cholesterol 54 mg/dL (40-59); LDL Cholesterol 70 mg/dL (< 100); Triglycerides 62 mg/dL (< 150)
== END | disposition home or self-care (01) ==
LOC: LAB 08:37
PROVIDERS: ATTEND Internal Medicine
DX: E11.9 Type 2 diabetes mellitus without complications (principal); R09.89 Other specified symptoms and signs involving the circulatory and respiratory systems
CPT/HCPCS: 36415; 80061; 83880

== ENCOUNTER → 2020-05-15 | Outpatient (CLI) | payer OTHER ==
[~2020-05-15] MED LIST changes: +CHOL20007 PO; +FAMO-12 PO; +FINA5TAB4 PO; +TAMS1CAP25 PO
[2020-05-15 10:32] LABS: Basophils # (auto) 0.1 10 ^3/uL (0-0.2); Basophils % (auto) 0.9 % (0.0-2.0); Eosinophils # (auto) 0.3 10 ^3/uL (0-0.8); Eosinophils % (auto) 3.9 % (0.0-7.0); Hematocrit 47.1 % (41.0-53.0); Hemoglobin 15.3 g/dL (13.5-17.5); Lymphocytes # (auto) 2.2 10 ^3/uL (0.4-5.4); Mean Corpuscular Hemoglobin 28.6 pg (28.0-32.0); Mean Corpuscular Hgb Conc. 32.5 g/dL (32.0-36.0); Mean Corpuscular Volume 88.1 fL (80.0-100.0); Monocytes % (auto) 10.9 % (0.0-12.0); Neutrophils # (auto) 5.3 10 ^3/uL (1.6-8.6); Neutrophils % (auto) 59.3 % (37.0-80.0); Platelet Count (auto) 237 10^3/uL (140-450); Red Blood Cells 5.34 10^6/uL (4.5-5.90); Red Cell Distribution Width 14.3 % (11.8-14.3); White Blood Cell 8.9 10^3/uL (4.4-10.8)
[2020-05-15 10:49] LABS: INR 1.12 (0.9-1.15); Partial Thromboplastin Time 26.1 sec (23.0-31.2)
[2020-05-15 10:51] LABS: Albumin 3.7 g/dL (3.4-5.0); Calcium 8.9 mg/dL (8.5-10.1); Potassium 4.3 mmol/L (3.5-5.1)
[2020-05-15 10:54] LABS: BUN/Creatinine Ratio 24.5; Bilirubin, Total 0.6 mg/dL (0.2-1.0); Total Protein 7.3 g/dL (6.4-8.2)
== END | disposition home or self-care (01) ==
LOC: LAB 10:11
PROVIDERS: ATTEND Internal Medicine
DX: Z01.812 Encounter for preprocedural laboratory examination (principal)
CPT/HCPCS: 36415; 80053; 85025; 85610; 85730

== ENCOUNTER 2020-05-18 06:45 | Inpatient (IN) | payer OTHER ==
[~2020-05-18] VITALS: Ht 182.9 cm; Wt 92.0 kg
[~2020-05-18 06:45] MED LIST changes: -OMEP20CA74 PO
[2020-05-18] MEDS ORDERED: VANCOMYCIN 1GM/250ML 250 ML IV ONE (08:30)
[2020-05-18] MEDS ORDERED: IOHEXOL 350 MG/ML 100ML IJ ONE (08:45)
[2020-05-18] MEDS ORDERED: LIDOCAINE 2%HCL (LOCAL ANESTH.) INJ 20ML MDV ONE ×2 (08:45→08:57)
[2020-05-18] MEDS ORDERED: VANCOMYCIN HCL 1000 MG VL ONE (08:52)
[2020-05-18] MEDS ORDERED: ANGIOMAX 250 MG VIAL IV ONE (08:52)
[2020-05-18] MEDS ORDERED: fentaNYL CITRATE 100 MCG/2 ML VL ONE (08:53)
[2020-05-18] MEDS ORDERED: SODIUM CHL 0.9% 0 ML ONE (08:53)
[2020-05-18] MEDS ORDERED: MIDAZOLAM HCL 1MG/1ML-2 ML VIAL ONE ×2 (08:53→10:36)
[2020-05-18] MEDS ORDERED: VERAPAMIL 2.5MG/ML INJ 2ML VIAL IV ONE (08:53)
[2020-05-18] MEDS ORDERED: SODIUM CHL 0.9% 50 ML ONE (09:00)
[2020-05-18] MEDS ORDERED: HEPARIN SODIUM (PORCINE) 5000 UNITS/ML 1ML VIAL ONE (09:40)
[2020-05-18] MEDS ORDERED: MORPHINE SULF INJ 2 MG/ML SYRINGE 1ML IV PRN ×2 (11:45→21:00)
[2020-05-18] MEDS ORDERED: NITROGLYCERIN 0.4 MG SL TAB SL PRN (11:45)
[2020-05-18] MEDS ORDERED: DEXTROSE (50%) 50ML SYRG IV PRN (12:00)
[2020-05-18 14:30] VITALS: BP 131/73
[2020-05-18 16:11] VITALS: BP 148/83
[2020-05-18] MEDS: ACCU-CHEK COMFORT CURVE STRIP VI SCH ×2 (16:41→22:34)
[2020-05-18] MEDS: InsuLIN REG 1unit/0.01ml Soln (100units/ml) SC SCH ×2 (16:43→22:00)
[2020-05-18 17:06] VITALS: BP 143/74
[2020-05-18] MEDS ORDERED: GABAPENTIN 300 MG CAP PO SCH (18:00)
[2020-05-18] MEDS ORDERED: TAMSULOSIN HYDROCHLORIDE 0.4 MG CAP PO SCH (18:00)
[2020-05-18] MEDS ORDERED: HYDROcodone-ACET 5/325MG TAB PO PRN (21:00)
[2020-05-18] MEDS ORDERED: ATORVASTATIN 20 MG TAB PO SCH (22:00)
[2020-05-18 22:13] VITALS: BP 130/78
[2020-05-18] MEDS: FAMOTIDINE 20 MG TAB PO SCH (22:33)
[2020-05-19 05:05] VITALS: BP 110/69
[2020-05-19 05:25] LABS: Basophils # (auto) 0.1 10 ^3/uL (0-0.2); Basophils % (auto) 0.8 % (0.0-2.0); Eosinophils # (auto) 0.3 10 ^3/uL (0-0.8); Eosinophils % (auto) 2.8 % (0.0-7.0); Hematocrit 45.7 % (41.0-53.0); Hemoglobin 14.7 g/dL (13.5-17.5); Lymphocytes # (auto) 1.8 10 ^3/uL (0.4-5.4); Lymphocytes % (auto) 18.8 % (10.0-50.0); Mean Corpuscular Hemoglobin 28.3 pg (28.0-32.0); Mean Corpuscular Hgb Conc. 32.1 g/dL (32.0-36.0); Mean Corpuscular Volume 88.2 fL (80.0-100.0); Monocytes # (auto) 1.1 10 ^3/uL (0-1.3); Monocytes % (auto) 12.1 % (0.0-12.0); Neutrophils # (auto) 6.1 10 ^3/uL (1.6-8.6); Neutrophils % (auto) 65.5 % (37.0-80.0); Platelet Count (auto) 181 10^3/uL (140-450); Red Blood Cells 5.18 10^6/uL (4.5-5.90); Red Cell Distribution Width 14.7 % (11.8-14.3); White Blood Cell 9.4 10^3/uL (4.4-10.8)
[2020-05-19 05:43] LABS: Calcium 9.2 mg/dL (8.5-10.1); Potassium 4.6 mmol/L (3.5-5.1)
[2020-05-19 05:51] LABS: INR 1.17 (0.9-1.15); Partial Thromboplastin Time 27.4 sec (23.0-31.2)
[2020-05-19] MEDS: InsuLIN REG 1unit/0.01ml Soln (100units/ml) SC SCH ×2 (06:37→11:30)
[2020-05-19] MEDS: ACCU-CHEK COMFORT CURVE STRIP VI SCH ×2 (06:37→11:30)
[2020-05-19] MEDS ORDERED: GABAPENTIN 300 MG CAP PO SCH (07:00)
[2020-05-19 08:00] VITALS: BP 133/86
[2020-05-19 09:00] VITALS: BP 133/86
[2020-05-19] MEDS ORDERED: FINASTERIDE 5 MG TAB PO SCH (10:00)
[2020-05-19] MEDS ORDERED: LISINOPRIL 10 MG TAB PO SCH (10:00)
[2020-05-19] MEDS ORDERED: LISINOPRIL 5 MG TAB PO SCH (10:00)
[2020-05-19] MEDS: FAMOTIDINE 20 MG TAB PO SCH (10:53)
[2020-05-19 12:35] VITALS: BP 148/81
[2020-05-19 16:19] VITALS: BP 133/86
[2020-05-19 17:00] VITALS: BP 140/77
== END 2020-05-19 17:58 | disposition home or self-care (01) | DRG 243 ==
LOC: CATH 06:45 → TELE-WESTW 14:18
PROVIDERS: ADMIT Internal Medicine; ATTEND Internal Medicine
PROC: 4A023N7 Measurement of Cardiac Sampling and Pressure, Left Heart, Percutaneous Approach (ICD-10-PCS; principal; 2020-05-18)
PROC: 0JH606Z Insertion of Pacemaker, Dual Chamber into Chest Subcutaneous Tissue and Fascia, Open Approach (ICD-10-PCS; 2020-05-18)
PROC: 02HK3JZ Insertion of Pacemaker Lead into Right Ventricle, Percutaneous Approach (ICD-10-PCS; 2020-05-18)
PROC: 02H63JZ Insertion of Pacemaker Lead into Right Atrium, Percutaneous Approach (ICD-10-PCS; 2020-05-18)
PROC: B211YZZ Fluoroscopy of Multiple Coronary Arteries using Other Contrast (ICD-10-PCS; 2020-05-18)
PROC: B215YZZ Fluoroscopy of Left Heart using Other Contrast (ICD-10-PCS; 2020-05-18)
DX: I49.5 Sick sinus syndrome (principal); I44.2 Atrioventricular block, complete; E11.9 Type 2 diabetes mellitus without complications; I10 Essential (primary) hypertension; E78.00 Pure hypercholesterolemia, unspecified; I25.10 Atherosclerotic heart disease of native coronary artery without angina pectoris; Z86.79 Personal history of other diseases of the circulatory system; Z95.5 Presence of coronary angioplasty implant and graft; Z20.828 Contact with and (suspected) exposure to other viral communicable diseases
CPT/HCPCS: 36415; 71045; 80048; 82962; 85025; 85610; 85730; 87426; 93005; 99152; 99153; C1785; G0378; J2250

== ENCOUNTER → 2021-02-12 | Outpatient (CLI) | payer OTHER ==
[~2021-02-12] MED LIST changes: +ATOR-47 PO; -ATOR1TAB PO
== END | disposition home or self-care (01) ==
LOC: LAB 10:11
PROVIDERS: ATTEND Internal Medicine
DX: E11.9 Type 2 diabetes mellitus without complications (principal)
CPT/HCPCS: 36415; 82043; 83036

== ENCOUNTER 2021-08-06 12:56 | Inpatient (IN) | payer OTHER ==
[~2021-08-06] VITALS: Ht 188 cm; Wt 94.7 kg
[~2021-08-06 12:56] MED LIST changes: -ASPI-231 PO; +ASPI1TAB20 PO
[2021-08-06 13:54] LABS: Basophils # (auto) 0.1 10 ^3/uL (0-0.2); Basophils % (auto) 0.6 % (0.0-2.0); Eosinophils # (auto) 0.2 10 ^3/uL (0-0.8); Eosinophils % (auto) 1.4 % (0.0-7.0); Hematocrit 47.1 % (41.0-53.0); Hemoglobin 14.8 g/dL (13.5-17.5); Lymphocytes % (auto) 7.2 % (10.0-50.0); Mean Corpuscular Hemoglobin 27.3 pg (28.0-32.0); Mean Corpuscular Hgb Conc. 31.4 g/dL (32.0-36.0); Mean Corpuscular Volume 87.1 fL (80.0-100.0); Monocytes # (auto) 1.1 10 ^3/uL (0-1.3); Monocytes % (auto) 7.9 % (0.0-12.0); Neutrophils # (auto) 11.8 10 ^3/uL (1.6-8.6); Neutrophils % (auto) 82.9 % (37.0-80.0); Red Blood Cells 5.41 10^6/uL (4.5-5.90); Red Cell Distribution Width 14.7 % (11.8-14.3); White Blood Cell 14.3 10^3/uL (4.4-10.8)
[2021-08-06 14:10] LABS: Albumin 3.5 g/dL (3.4-5.0); Potassium 4.8 mmol/L (3.5-5.1)
[2021-08-06 14:15] LABS: BUN/Creatinine Ratio 25.3; Bilirubin, Total 0.5 mg/dL (0.2-1.0)
[2021-08-06] MEDS ORDERED: [UNRECOGNIZED DRUG - CODE] PO (16:29)
[2021-08-06] MEDS ORDERED: LISI-716 PO (16:29)
[2021-08-06] MEDS ORDERED: MORPHINE SULFATE INJECTION 2 MG/ML SYRG IV PRN ×3 (16:30→18:15)
[2021-08-06] MEDS ORDERED: NITROGLYCERIN 0.4 MG SL TAB SL PRN ×2 (16:30→18:15)
[2021-08-06] MEDS ORDERED: CALC-239 PO (16:41)
[2021-08-06] MEDS ORDERED: OMEP-260 PO (16:41)
[2021-08-06] MEDS ORDERED: SERT50TA19 PO (16:41)
[2021-08-06] MEDS ORDERED: PANT40T PO (16:41)
[2021-08-06] MEDS ORDERED: ASCORBIC ACID 500 MG TAB PO ONE (18:00)
[2021-08-06] MEDS ORDERED: ASPirin 81 mg TAB PO ONE (18:00)
[2021-08-06] MEDS ORDERED: ALBUTEROL SULF 2.5 MG/0.5ML(0.5%) NEB SOLN NEB ONE (18:00)
[2021-08-06] MEDS ORDERED: AZITHROMYCIN 500MG/ 250ML 250 ML IV ONE (18:00)
[2021-08-06] MEDS ORDERED: methylPREDNISolone SOD SUCC 125 MG/2 ML VL IV ONE (18:00)
[2021-08-06] MEDS ORDERED: ATORVASTATIN 20 MG TAB PO ONE (18:00)
[2021-08-06] MEDS ORDERED: PANTOPRAZOLE 40 MG/10 ML VIAL INJ IV ONE (18:00)
[2021-08-06] MEDS ORDERED: cefTRIAXone 1GM/50ML D5W 50 ML IV ONE (18:00)
[2021-08-06] MEDS ORDERED: IPRATROPIUM BROM 0.5 MG/2.5ML INH SOL NEB ONE (18:00)
[2021-08-06] MEDS ORDERED: IPRATROPIUM BROM 0.5 MG/2.5ML INH SOL ONE (18:13)
[2021-08-06] MEDS ORDERED: ALBUTEROL SULF 2.5 MG/0.5ML(0.5%) NEB SOLN ONE (18:13)
[2021-08-06] MEDS ORDERED: ACETAMINOPHEN 325 MG TAB PO PRN (18:15)
[2021-08-06] MEDS ORDERED: ALUM & MAG HYDROX-SIMETH LIQ(MAALOX) 30 ML PO PRN (18:15)
[2021-08-06] MEDS ORDERED: hydrALAZINE HCL 20 MG/ML VL IV PRN (18:15)
[2021-08-06] MEDS ORDERED: ONDANSETRON HCL 4 MG/2 ML VIAL IV PRN (18:15)
[2021-08-06] MEDS ORDERED: TEMAZEPAM 15 MG CAP PO PRN (18:15)
[2021-08-06] MEDS ORDERED: HYDROcodone-ACET 5/325MG TAB PO PRN (18:15)
[2021-08-06] MEDS ORDERED: DEXTROSE (50%) 50ML SYRG IV PRN (18:30)
[2021-08-06] MEDS: FUROSEMIDE 20 MG/2 ML VIAL IV SCH (18:37)
[2021-08-06] MEDS: IPRATROPIUM BROM 0.5 MG/2.5ML INH SOL NEB SCH (19:44)
[2021-08-06 20:15] VITALS: BP 111/66
[2021-08-06] MEDS: POTASSIUM CHL 20 Meq TABLET PO SCH (22:25)
[2021-08-06] MEDS: methylPREDNISolone SOD SUCC 40 MG/ML VL IV SCH (22:25)
[2021-08-06] MEDS: ACCU-CHEK COMFORT CURVE STRIP VI SCH (22:26)
[2021-08-06] MEDS: ATORVASTATIN 20 MG TAB PO SCH (22:26)
[2021-08-06] MEDS: ASCORBIC ACID 500 MG TAB PO SCH (22:26)
[2021-08-06] MEDS: InsuLIN REG 1unit/0.01ml Soln (100units/ml) SC SCH (22:33)
[2021-08-07] MEDS: ALBUTEROL SULF 2.5 MG/0.5ML(0.5%) NEB SOLN NEB PRN ×5 (00:23→18:19)
[2021-08-07] MEDS: IPRATROPIUM BROM 0.5 MG/2.5ML INH SOL NEB SCH ×5 (00:23→18:19)
[2021-08-07] MEDS: methylPREDNISolone SOD SUCC 40 MG/ML VL IV SCH ×3 (06:36→21:38)
[2021-08-07] MEDS: FUROSEMIDE 20 MG/2 ML VIAL IV SCH ×2 (06:46→18:09)
[2021-08-07] MEDS: ACCU-CHEK COMFORT CURVE STRIP VI SCH ×4 (06:47→21:33)
[2021-08-07] MEDS: InsuLIN REG 1unit/0.01ml Soln (100units/ml) SC SCH ×4 (06:47→21:40)
[2021-08-07 06:55] LABS: INR 1.09 (0.9-1.15); Partial Thromboplastin Time 24.4 sec (23.6-33.0)
[2021-08-07 06:57] LABS: Albumin 3.6 g/dL (3.4-5.0); Calcium 9.2 mg/dL (8.5-10.1); Magnesium 2.8 mg/dL (1.6-2.6); Potassium 4.8 mmol/L (3.5-5.1)
[2021-08-07 06:58] LABS: Basophils # (auto) 0 10 ^3/uL (0-0.2); Basophils % (auto) 0.1 % (0.0-2.0); Eosinophils # (auto) 0 10 ^3/uL (0-0.8); Eosinophils % (auto) 0.1 % (0.0-7.0); Hematocrit 47.2 % (41.0-53.0); Hemoglobin 15.1 g/dL (13.5-17.5); Lymphocytes # (auto) 1.1 10 ^3/uL (0.4-5.4); Lymphocytes % (auto) 8.6 % (10.0-50.0); Mean Corpuscular Hemoglobin 28.2 pg (28.0-32.0); Mean Corpuscular Hgb Conc. 32.1 g/dL (32.0-36.0); Mean Corpuscular Volume 87.8 fL (80.0-100.0); Monocytes # (auto) 0.2 10 ^3/uL (0-1.3); Monocytes % (auto) 1.9 % (0.0-12.0); Neutrophils # (auto) 11.1 10 ^3/uL (1.6-8.6); Neutrophils % (auto) 89.3 % (37.0-80.0); Red Blood Cells 5.37 10^6/uL (4.5-5.90); Red Cell Distribution Width 14.7 % (11.8-14.3); White Blood Cell 12.5 10^3/uL (4.4-10.8)
[2021-08-07 07:03] LABS: BUN/Creatinine Ratio 22.4; Bilirubin, Total 0.6 mg/dL (0.2-1.0); Phosphorus 2.6 mg/dL (2.5-4.90); Total Protein 8.2 g/dL (6.4-8.2); Uric Acid 4.9 mg/dL (3.5-7.2)
[2021-08-07 09:45] VITALS: BP 135/81
[2021-08-07] MEDS: cefTRIAXone 1GM/50ML D5W 50 ML IV SCH (10:50)
[2021-08-07] MEDS: POTASSIUM CHL 20 Meq TABLET PO SCH (10:51)
[2021-08-07] MEDS: PANTOPRAZOLE 40 MG/10 ML VIAL INJ IV SCH (10:52)
[2021-08-07] MEDS: ASPirin 81 mg TAB PO SCH (10:53)
[2021-08-07] MEDS: BENAZEPRIL HCL 10 MG TAB PO SCH (10:53)
[2021-08-07] MEDS: METOPROLOL SUCCINATE XL 50 MG TAB PO SCH (10:54)
[2021-08-07] MEDS: CHOLECALCIFEROL (VITD3) 2,000 UNIT CAP/TAB PO SCH (10:54)
[2021-08-07] MEDS: ASCORBIC ACID 500 MG TAB PO SCH (10:54)
[2021-08-07] MEDS: ENOXAPARIN SOD 40 MG/0.4 ML SYRINGE SC SCH (10:55)
[2021-08-07] MEDS ORDERED: IOHEXOL 350 MG/ML 100ML IJ ONE (11:15)
[2021-08-07 12:51] VITALS: BP 122/72
[2021-08-07] MEDS: AZITHROMYCIN 500MG/ 250ML 250 ML IV SCH (13:49)
[2021-08-07 14:36] LABS: Urine Bacteria FEW /hpf (None Seen); Urine Blood Negative /uL (Negative); Urine Mucus FEW (None Seen); Urine WBC 119 /hpf (0 - 3)
[2021-08-07 14:48] LABS: Urine Specific Gravity > 1.050 (1.001-1.035)
[2021-08-07 14:56] LABS: Amphetamine Screen, Urine NEGATIVE (NEGATIVE); Barbiturate Scree,Urine NEGATIVE (NEGATIVE); Benzodiazephine Screen, Urine NEGATIVE (NEGATIVE); Cannabinoid Screen, Urine NEGATIVE (NEGATIVE); Cocaine Screen, Urine NEGATIVE (NEGATIVE); Opiate Scree,Urine NEGATIVE (NEGATIVE); Phencyclidine Screen, Urine NEGATIVE (NEGATIVE)
[2021-08-07 17:26] VITALS: BP 113/69
[2021-08-07 17:45] LABS: INR 1.09 (0.9-1.15); Partial Thromboplastin Time 26.8 sec (23.6-33.0)
[2021-08-07] MEDS: TAMSULOSIN HYDROCHLORIDE 0.4 MG CAP PO SCH (18:09)
[2021-08-07] MEDS ORDERED: IPRATROPIUM BROM 0.5 MG/2.5ML INH SOL NEB PRN (18:30)
[2021-08-07] MEDS: ATORVASTATIN 20 MG TAB PO SCH (21:38)
[2021-08-07 22:00] VITALS: BP 121/55
[2021-08-08 05:00] VITALS: BP 117/59
[2021-08-08] MEDS: InsuLIN REG 1unit/0.01ml Soln (100units/ml) SC SCH ×4 (06:14→21:15)
[2021-08-08] MEDS: ACCU-CHEK COMFORT CURVE STRIP VI SCH ×4 (06:14→21:13)
[2021-08-08] MEDS: methylPREDNISolone SOD SUCC 40 MG/ML VL IV SCH ×3 (06:26→21:13)
[2021-08-08] MEDS: FUROSEMIDE 20 MG/2 ML VIAL IV SCH ×2 (06:26→17:10)
[2021-08-08 06:37] LABS: BUN/Creatinine Ratio 33.7; Calcium 9.2 mg/dL (8.5-10.1)
[2021-08-08 09:00] VITALS: BP 134/75
[2021-08-08] MEDS: cefTRIAXone 1GM/50ML D5W 50 ML IV SCH (09:00)
[2021-08-08] MEDS: METOPROLOL SUCCINATE XL 50 MG TAB PO SCH (10:00)
[2021-08-08] MEDS: CHOLECALCIFEROL (VITD3) 2,000 UNIT CAP/TAB PO SCH (10:00)
[2021-08-08] MEDS: PANTOPRAZOLE 40 MG/10 ML VIAL INJ IV SCH (10:00)
[2021-08-08] MEDS: ASPirin 81 mg TAB PO SCH (10:00)
[2021-08-08] MEDS: ENOXAPARIN SOD 40 MG/0.4 ML SYRINGE SC SCH (10:00)
[2021-08-08] MEDS: BENAZEPRIL HCL 10 MG TAB PO SCH (10:00)
[2021-08-08] MEDS ORDERED: POTASSIUM CHL 20 Meq TABLET PO SCH (10:00)
[2021-08-08] MEDS: AZITHROMYCIN 500MG/ 250ML 250 ML IV SCH (10:00)
[2021-08-08 13:00] VITALS: BP 128/62
[2021-08-08 16:20] VITALS: BP 139/51
[2021-08-08] MEDS: TAMSULOSIN HYDROCHLORIDE 0.4 MG CAP PO SCH (17:11)
[2021-08-08] MEDS: ATORVASTATIN 20 MG TAB PO SCH (21:14)
[2021-08-08 22:00] VITALS: BP 103/50
[2021-08-09 05:00] VITALS: BP 110/45
[2021-08-09] MEDS: FUROSEMIDE 20 MG/2 ML VIAL IV SCH (06:13)
[2021-08-09] MEDS: methylPREDNISolone SOD SUCC 40 MG/ML VL IV SCH (06:13)
[2021-08-09] MEDS: ACCU-CHEK COMFORT CURVE STRIP VI SCH ×3 (06:13→17:00)
[2021-08-09] MEDS: InsuLIN REG 1unit/0.01ml Soln (100units/ml) SC SCH ×3 (06:15→17:00)
[2021-08-09 08:06] LABS: BUN/Creatinine Ratio 46.7; Calcium 9.2 mg/dL (8.5-10.1); Potassium 4.8 mmol/L (3.5-5.1)
[2021-08-09 09:00] VITALS: BP 127/83
[2021-08-09] MEDS: cefTRIAXone 1GM/50ML D5W 50 ML IV SCH (09:00)
[2021-08-09] MEDS: PANTOPRAZOLE 40 MG/10 ML VIAL INJ IV SCH (09:38)
[2021-08-09] MEDS: AZITHROMYCIN 500MG/ 250ML 250 ML IV SCH (09:38)
[2021-08-09] MEDS: ASPirin 81 mg TAB PO SCH (09:38)
[2021-08-09] MEDS: ENOXAPARIN SOD 40 MG/0.4 ML SYRINGE SC SCH (09:39)
[2021-08-09] MEDS: BENAZEPRIL HCL 10 MG TAB PO SCH (09:39)
[2021-08-09] MEDS: CHOLECALCIFEROL (VITD3) 2,000 UNIT CAP/TAB PO SCH (09:39)
[2021-08-09] MEDS: METOPROLOL SUCCINATE XL 50 MG TAB PO SCH (09:49)
[2021-08-09] MEDS ORDERED: SERTRALINE HCL 50 MG TAB PO ONE (11:30)
[2021-08-09 13:00] VITALS: BP 117/67
[2021-08-09 15:32] VITALS: BP 117/67
[2021-08-09 17:00] VITALS: BP 143/84
[2021-08-10] MEDS ORDERED: FAMOTIDINE 20 MG TAB PO SCH (10:00)
[2021-08-10] MEDS ORDERED: SERTRALINE HCL 50 MG TAB PO SCH (10:00)
[2021-08-10] MEDS ORDERED: predniSONE 20 MG TAB PO SCH (10:00)
== END 2021-08-09 17:07 | disposition hospice, home (50) | DRG 871 ==
LOC: ER 12:56 → TELE 16:20 → UNDOADMIN 18:42 → TELE 18:42 → TELE-WESTW 08-07 08:40
PROVIDERS: ADMIT Hospitalist; ATTEND Internal Medicine
DX: A41.89 Other specified sepsis (principal); I50.33 Acute on chronic diastolic (congestive) heart failure; J18.9 Pneumonia, unspecified organism; J96.20 Acute and chronic respiratory failure, unspecified whether with hypoxia or hypercapnia; I24.9 Acute ischemic heart disease, unspecified; J44.1 Chronic obstructive pulmonary disease with (acute) exacerbation; J45.901 Unspecified asthma with (acute) exacerbation; J44.0 Chronic obstructive pulmonary disease with (acute) lower respiratory infection; C34.91 Malignant neoplasm of unspecified part of right bronchus or lung; Z66 Do not resuscitate; I11.0 Hypertensive heart disease with heart failure; N40.0 Benign prostatic hyperplasia without lower urinary tract symptoms; E11.40 Type 2 diabetes mellitus with diabetic neuropathy, unspecified; K29.70 Gastritis, unspecified, without bleeding; K21.9 Gastro-esophageal reflux disease without esophagitis; Z20.822 Contact with and (suspected) exposure to COVID-19; E11.21 Type 2 diabetes mellitus with diabetic nephropathy; E11.51 Type 2 diabetes mellitus with diabetic peripheral angiopathy without gangrene; E78.5 Hyperlipidemia, unspecified; I25.10 Atherosclerotic heart disease of native coronary artery without angina pectoris; I49.5 Sick sinus syndrome; I71.4 Abdominal aortic aneurysm, without rupture; Z51.5 Encounter for palliative care; Z79.02 Long term (current) use of antithrombotics/antiplatelets; Z80.8 Family history of malignant neoplasm of other organs or systems; Z82.49 Family history of ischemic heart disease and other diseases of the circulatory system; Z86.73 Personal history of transient ischemic attack (TIA), and cerebral infarction without residual deficits; Z87.891 Personal history of nicotine dependence; Z95.0 Presence of cardiac pacemaker; Z98.61 Coronary angioplasty status; Z79.899 Other long term (current) drug therapy; I25.2 Old myocardial infarction
CPT/HCPCS: 36415; 71046; 71275; 80048; 80053; 80307; 81001; 82306; 82962; 83036; 83735; 83880; 84100; 84443; 84484; 84550; 85025; 85379; 85610; 85730; 87040; 87086; 87426; 93005; 93306; 93970; 94640; 96365; 96375; C9113; G0378; J0696; J1815

== ENCOUNTER 2021-09-29 11:13 | Inpatient (IN) | payer OTHER ==
[~2021-09-29] VITALS: Ht 172.7 cm; Wt 77.1 kg
[~2021-09-29 11:13] MED LIST changes: +CALC-239 PO; -CHOL20007 PO; +LISI-716 PO; -LISI2.5T47 PO; +OMEP-260 PO; +PANT40T PO; +SERT50TA19 PO; +[UNRECOGNIZED DRUG - CODE] PO
[2021-09-29 12:35] LABS: Basophils # (auto) 0.1 10 ^3/uL (0-0.2); Basophils % (auto) 0.5 % (0.0-2.0); Hemoglobin 16.2 g/dL (13.5-17.5); Lymphocytes # (auto) 1.8 10 ^3/uL (0.4-5.4)
[2021-09-29 12:37] LABS: Eosinophils # (auto) 0.2 10 ^3/uL (0-0.8); Eosinophils % (auto) 1.3 % (0.0-7.0); Hematocrit 50.8 % (41.0-53.0); Lymphocytes % (auto) 11.9 % (10.0-50.0); Mean Corpuscular Hemoglobin 27.4 pg (28.0-32.0); Mean Corpuscular Volume 85.7 fL (80.0-100.0); Monocytes # (auto) 1.6 10 ^3/uL (0-1.3); Monocytes % (auto) 10.7 % (0.0-12.0); Neutrophils # (auto) 11.4 10 ^3/uL (1.6-8.6); Neutrophils % (auto) 75.6 % (37.0-80.0); Nucleated Red Blood Cells % 0.1 %; Red Blood Cells 5.92 10^6/uL (4.5-5.90); Red Cell Distribution Width 14.7 % (11.8-14.3); White Blood Cell 15.1 10^3/uL (4.4-10.8)
[2021-09-29 12:51] LABS: Albumin 3.4 g/dL (3.4-5.0); Calcium 9.1 mg/dL (8.5-10.1); Potassium 3.6 mmol/L (3.5-5.1)
[2021-09-29 12:55] LABS: BUN/Creatinine Ratio 27.4; Total Protein 7.1 g/dL (6.4-8.2)
[2021-09-29] MEDS ORDERED: ONDANSETRON HCL 4 MG/2 ML VIAL IV ONE (13:45)
[2021-09-29] MEDS ORDERED: MORPHINE SULFATE INJECTION 2 MG/ML SYRG IV ONE (13:45)
[2021-09-29] MEDS ORDERED: LIDOCAINE 4MG/ML IV SOLN 500 ML IV SCH (15:00)
[2021-09-29] MEDS ORDERED: MORPHINE SULFATE INJECTION 2 MG/ML SYRG IV PRN (17:15)
[2021-09-29] MEDS ORDERED: NITROGLYCERIN 0.4 MG SL TAB SL PRN (17:15)
[2021-09-30 12:40] LABS: Basophils # (auto) 0 10 ^3/uL (0-0.2); Basophils % (auto) 0.4 % (0.0-2.0); Eosinophils # (auto) 0.2 10 ^3/uL (0-0.8); Eosinophils % (auto) 1.3 % (0.0-7.0); Lymphocytes # (auto) 1.1 10 ^3/uL (0.4-5.4); Lymphocytes % (auto) 9.1 % (10.0-50.0); Mean Corpuscular Hemoglobin 27.5 pg (28.0-32.0); Mean Corpuscular Hgb Conc. 31.8 g/dL (32.0-36.0); Mean Corpuscular Volume 86.2 fL (80.0-100.0); Monocytes # (auto) 1.2 10 ^3/uL (0-1.3); Monocytes % (auto) 10.4 % (0.0-12.0); Neutrophils # (auto) 9.4 10 ^3/uL (1.6-8.6); Neutrophils % (auto) 78.8 % (37.0-80.0); Nucleated Red Blood Cells % 0.1 %; Red Blood Cells 5.45 10^6/uL (4.5-5.90); Red Cell Distribution Width 14.8 % (11.8-14.3); White Blood Cell 11.9 10^3/uL (4.4-10.8)
[2021-09-30 12:52] LABS: INR 1.33 (0.9-1.15); Partial Thromboplastin Time 28.1 sec (23.6-33.0)
[2021-09-30 13:37] LABS: BUN/Creatinine Ratio 28.3; Potassium 3.6 mmol/L (3.5-5.1)
[2021-09-30 13:38] LABS: Albumin 2.9 g/dL (3.4-5.0); Bilirubin, Total 0.7 mg/dL (0.2-1.0); Calcium 8.6 mg/dL (8.5-10.1); Magnesium 2.1 mg/dL (1.6-2.6); Phosphorus 3.4 mg/dL (2.5-4.90); Total Protein 6.5 g/dL (6.4-8.2)
[2021-09-30] MEDS ORDERED: AMIODARONE HCL 200 MG TAB PO ONE (15:00)
[2021-09-30] MEDS ORDERED: TAMSULOSIN HYDROCHLORIDE 0.4 MG CAP PO SCH (18:00)
[2021-09-30 21:56] VITALS: BP 105/56
[2021-10-01] MEDS ORDERED: AMIODARONE HCL 200 MG TAB PO SCH (04:00)
== END 2021-09-30 22:15 | disposition left against medical advice (07) | DRG 308 ==
LOC: EDBD 11:13 → ER 11:13 → TELE 17:13
PROVIDERS: ADMIT Hospitalist; ATTEND Internal Medicine
DX: I47.2 Ventricular tachycardia (principal); J96.21 Acute and chronic respiratory failure with hypoxia; I50.33 Acute on chronic diastolic (congestive) heart failure; J18.9 Pneumonia, unspecified organism; J44.1 Chronic obstructive pulmonary disease with (acute) exacerbation; J44.0 Chronic obstructive pulmonary disease with (acute) lower respiratory infection; C34.90 Malignant neoplasm of unspecified part of unspecified bronchus or lung; J98.11 Atelectasis; I11.0 Hypertensive heart disease with heart failure; Z66 Do not resuscitate; K21.9 Gastro-esophageal reflux disease without esophagitis; E11.51 Type 2 diabetes mellitus with diabetic peripheral angiopathy without gangrene; I25.5 Ischemic cardiomyopathy; I71.4 Abdominal aortic aneurysm, without rupture; Z53.29 Procedure and treatment not carried out because of patient's decision for other reasons; I25.10 Atherosclerotic heart disease of native coronary artery without angina pectoris; N40.0 Benign prostatic hyperplasia without lower urinary tract symptoms; Z20.822 Contact with and (suspected) exposure to COVID-19; Z51.5 Encounter for palliative care; Z80.8 Family history of malignant neoplasm of other organs or systems; Z82.3 Family history of stroke; Z82.49 Family history of ischemic heart disease and other diseases of the circulatory system; Z85.118 Personal history of other malignant neoplasm of bronchus and lung; Z86.73 Personal history of transient ischemic attack (TIA), and cerebral infarction without residual deficits; Z95.0 Presence of cardiac pacemaker; Z98.61 Coronary angioplasty status; Z99.81 Dependence on supplemental oxygen
CPT/HCPCS: 36415; 71045; 80053; 83735; 83880; 84100; 84484; 85025; 85379; 85610; 85730; 87426; 93005; 96361; 96374; 96375; 99291; G0378; J2405